=== PATIENT | male | born 1975 | race African-American/Black ===

== ENCOUNTER 2020-12-16 13:35 | Emergency (ER) | payer MEDICAID ==
[~2020-12-16] VITALS: Ht 190.5 cm; Wt 140.0 kg
[2020-12-16] MEDS ORDERED: ATENOLOL 50 MG TABLET PO ONE (14:30)
[2020-12-16 15:17] LABS: BASOPHILS % 0.6 % (0.0-2.0); EOSINOPHILS % 1.3 % (0.0-5.0); HEMATOCRIT. 50.5 % (42.0-52.0); LYMPHOCYTES % 32.3 % (20.0-50.0); MEAN CORPUSCULAR HEMOGLOBIN 29.8 pg (28.0-32.0); MEAN CORPUSCULAR VOLUME 88.5 fL (80.0-94.0); MEAN PLATELET VOLUME 9.6 fl (7.4-10.4); MONOCYTES % 7.9 % (2.0-8.0); NEUTROPHILS % 57.9 % (40.0-76.0); PLATELET 308 x1000/uL (130-400); RED CELL DISTRIBUTION WIDTH 13.4 % (11.6-14.6)
[2020-12-16 15:23] LABS: CHLORIDE 108 mEq/L (98-107)
[2020-12-16 15:27] LABS: ETHANOL BLOOD < 10 mg/dL
[2020-12-16] MEDS ORDERED: POTASSIUM CHLORIDE 20MEQ TABLET SR PO ONE (15:45)
[2020-12-16] MEDS ORDERED: ATEN50TA MT (16:00)
[2020-12-16 16:10] VITALS: BP 157/111
[2020-12-16 17:00] LABS: *AMPHETAMINES SCREEN URINE NEGATIVE (NEGATIVE); *BARBITURATES SCREEN URINE NEGATIVE (NEGATIVE); *BENZODIAZEPINES SCREEN URINE NEGATIVE (NEGATIVE); *COCAINE SCREEN URINE NEGATIVE (NEGATIVE)
[2020-12-16 17:01] LABS: CANNABINOID URINE SCREEN NEGATIVE (NEGATIVE); OPIATES URINE SCREEN NEGATIVE (NEGATIVE); PHENCYCLIDINE URINE SCREEN NEGATIVE (NEGATIVE)
[2020-12-16 17:02] LABS: METHADONE URINE SCREEN NEGATIVE (NEGATIVE)
== END 2020-12-16 16:38 | disposition home or self-care (01) ==
LOC: ER 13:35
DX: I10 Essential (primary) hypertension (principal); E11.9 Type 2 diabetes mellitus without complications; E78.00 Pure hypercholesterolemia, unspecified; I25.10 Atherosclerotic heart disease of native coronary artery without angina pectoris; F17.210 Nicotine dependence, cigarettes, uncomplicated; Z98.890 Other specified postprocedural states; Z88.5 Allergy status to narcotic agent
CPT/HCPCS: 36415; 71045; 80053; 80305; 80320; 83880; 84484; 85025; 93005; 99285; G0480

== ENCOUNTER 2021-03-10 14:12 | Emergency (ER) | payer MEDICAID ==
[~2021-03-10] VITALS: Ht 188 cm; Wt 138.0 kg
[~2021-03-10 14:12] MED LIST: ATEN50TA MT
[2021-03-10] MEDS ORDERED: KETOROLAC 30MG/ML VIAL IV STA (14:51)
[2021-03-10] MEDS ORDERED: ONDANSETRON HCL 4MG/2ML INJ IV STA (14:51)
[2021-03-10] MEDS ORDERED: SODIUM CHLORIDE 0.9% 1,000 ML IV ONE (15:00)
[2021-03-10 16:05] LABS: CLARITY URINE CLOUDY (CLEAR); COLOR URINE DARK YELLOW (YELLOW); KETONES URINE TRACE (NEGATIVE); LEUKOCYTE ESTERASE URINE NEGATIVE (NEGATIVE); NITRITE URINE NEGATIVE (NEGATIVE); OCCULT BLOOD URINE NEGATIVE (NEGATIVE); PH URINE 6.5 (4.5-8.0); PROTEIN URINE 4+ (NEGATIVE); SPECIFIC GRAVITY URINE 1.023 (1.005-1.030)
[2021-03-10 16:25] LABS: BASOPHILS % 0.9 % (0.0-2.0); EOSINOPHILS % 0.6 % (0.0-5.0); HEMATOCRIT. 42.8 % (42.0-52.0); HEMOGLOBIN. 15.2 g/dL (14.0-18.0); LYMPHOCYTES % 23.3 % (20.0-50.0); MEAN CORPUSCULAR HEMOGLOBIN 31.1 pg (28.0-32.0); MEAN CORPUSCULAR VOLUME 87.4 fL (80.0-94.0); MEAN PLATELET VOLUME 9.1 fl (7.4-10.4); MONOCYTES % 7.7 % (2.0-8.0); NEUTROPHILS % 67.5 % (40.0-76.0); PLATELET 355 x1000/uL (130-400)
[2021-03-10 16:31] LABS: CHLORIDE 105 mEq/L (98-107)
[2021-03-10 17:13] LABS: INR 1.1; PROTHROMBIN TIME 11.4 sec (9.6-11.0)
[2021-03-10] MEDS ORDERED: ONDA4TAB11 PO (19:21)
[2021-03-10 19:29] VITALS: BP 149/76
== END 2021-03-10 19:29 | disposition home or self-care (01) ==
LOC: ER 14:12
DX: R10.32 Left lower quadrant pain (principal); I10 Essential (primary) hypertension; E11.9 Type 2 diabetes mellitus without complications; Z88.5 Allergy status to narcotic agent; Z86.73 Personal history of transient ischemic attack (TIA), and cerebral infarction without residual deficits; Z87.442 Personal history of urinary calculi
CPT/HCPCS: 36415; 74176; 80053; 81003; 83690; 85025; 85610; 96361; 96374; 96375; 99284; J1885; J2405; Z7610